=== PATIENT | female | born 1955 | race American Indian/Alaskan Native ===

== ENCOUNTER → 2024-11-28 | Outpatient (CLI) | payer OTHER, SELFPAY ==
--- NOTE | 2024-11-28 15:31 | XR_ITS ---
Examination: Thoracic spine 3 views TECHNIQUE: AP lateral coned lateral upper dorsal spine 3 views Exam date and time: November 28, 2024 1556 hours INDICATIONS: Worsening back pain beginning 5 years ago. FINDINGS: Severe osteopenia Thoracic dextroscoliosis 10 degrees Moderate diffuse thoracic degenerative disc disease Moderate thoracic spondylosis No acute fracture IMPRESSION: Moderate diffuse thoracic degenerative disc disease Incidental note advanced degenerative disc disease C5-C6, C6-C7
== END | disposition home or self-care (01) ==
PROVIDERS: PCP Nurse Practitioner Family; Referring Provider Nurse Practitioner Family; Visit Provider Nurse Practitioner Family
DX: M51.34 Other intervertebral disc degeneration, thoracic region (principal); M50.322 Other cervical disc degeneration at C5-C6 level
CPT/HCPCS: 72072

== ENCOUNTER → 2025-02-12 | Outpatient (CLI) | payer MEDICARE, MEDICAID, SELFPAY ==
--- NOTE | 2025-02-12 | XR_ITS ---
Examination: Ultrasound soft tissue neck TECHNIQUE: Grayscale sonographic images soft tissue neck Exam date and time: February 12, 2025 1303 hours INDICATIONS: Palpable lump in the neck note is beginning several months ago. FINDINGS: Right submental lymph nodes 6 x 3 x 6 mm IMPRESSION: Small right submental lymph node, recommend 6 month follow-up ultrasound soft tissue neck
--- NOTE | 2025-02-12 | XR_ITS ---
EXAMINATION: Ankle, left 3 views . Technique: Ankle AP, oblique, lateral 3 views Date and time of exam: February 12, 2025 1345 hours INDICATIONS: Ankle surgery 3 years ago. 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
--- NOTE | 2025-02-12 | XR_ITS ---
Examination: Foot, left, 3 views Technique: AP, oblique, lateral views foot, 3 views Date and time of exam: February 15, 2025 1645 hours INDICATIONS: Foot pain ankle surgery 3 years ago. FINDINGS: Moderate bunion deformity with moderate osteoarthritis first metatarsophalangeal joint Ankle fusion with moderate osteoarthritis subtalar joint Plantar posterior bony calcaneal spurs and extensive ossification in the plantar fascia IMPRESSION: Moderate bunion deformity with moderate osteoarthritis first metatarsophalangeal joint Please see the ankle report
== END | disposition home or self-care (01) ==
PROVIDERS: PCP Nurse Practitioner Family; Referring Provider Nurse Practitioner Family; Visit Provider Nurse Practitioner Family
DX: R59.0 Localized enlarged lymph nodes (principal); M24.672 Ankylosis, left ankle; M21.612 Bunion of left foot; M19.072 Primary osteoarthritis, left ankle and foot
CPT/HCPCS: 73610; 73630; 76536

== ENCOUNTER → 2025-07-23 | Outpatient (CLI) | payer MEDICARE, MEDICAID, SELFPAY ==
--- NOTE | 2025-07-23 12:30 | XR_ITS ---
Examination: Breast ultrasound complete, bilateral Date and time of exam: July 23, 2025, 1248 hours INDICATIONS: Mammogram November 29, 2023 BI-RADS 4 suspicious microcalcifications nipple level right breast Technique: Real-time grayscale ultrasonographic imaging bilateral breasts, including all 4 quadrants as well as nipple retroareolar and axillary regions. Findings: Sonographic images right breast 12:00 cyst 6 x 4 mm 8:00 nodule lobular margins 9 x 10 mm 8:00 cyst 11 x 10 mm Sonographic images left breast 2:00 cyst 6 x 4 mm No solid nodules IMPRESSION: BI-RADS Category 3: Probably benign findings Recommend 1 additional 6 month right breast sonogram follow-up to document stability of 8:00 solid nodule described above
--- NOTE | 2025-07-23 13:30 | XR_ITS ---
Examination: Diagnostic digital mammography, bilateral Computer aided detection 3-D breast Tomosynthesis, bilateral Date and time of exam: July 23, 2025, 1313 hours INDICATIONS: Right breast pain 3 months left breast pain 6 months, strong family history, sister breast cancer Technique: Nonmagnified MLO, CC views of the breasts to been obtained, reconstructed from 3-D Tomosynthesis images. R2 computer aided detection program utilized for evaluation of suspicious masses and/or abnormal calcifications. 3-D Tomosynthesis images obtained. Findings: The breasts are heterogeneously dense which may obscure small masses The breast architecture is nodular Microcalcifications in linear distribution noted in the inner lower right breast anterior depth 16 mm focal asymmetry is present 9:00 position right breast Grouped microcalcifications are also present upper outer left breast posterior depth Impression: BI-RADS Category 0: Incomplete: Need additional imaging evaluation Recommend follow-up spot tomographic views of bilateral microcalcifications as above as well as bilateral spot tomographic views 16 mm focal asymmetry 9:00 position right breast Please also see the breast sonogram report today recommending continued 6 month follow-up right breast sonography
== END | disposition home or self-care (01) ==
PROVIDERS: PCP Nurse Practitioner Family; Referring Provider Nurse Practitioner Family; Visit Provider Nurse Practitioner Family
DX: R92.0 Mammographic microcalcification found on diagnostic imaging of breast (principal); R92.8 Other abnormal and inconclusive findings on diagnostic imaging of breast; N63.13 Unspecified lump in the right breast, lower outer quadrant
CPT/HCPCS: 76641; 77062; 77066; G0279

== ENCOUNTER 2025-10-14 21:43 | Emergency (ER) | payer MEDICARE, MEDICAID, SELFPAY ==
[2025-10-14 21:58] VITALS: BP 124/74; PULSE 87; RESP 18; TEMP 36.6; O2SAT 95
--- NOTE | 2025-10-14 22:07 | PD.EDSKIN ---
ED Skin Abcess FB-RME/HPI General Chief complaint: Skin/Abscess/Foreign Body Stated complaint: INSECT BITE TO RIGHT ANKLE AREA Time Seen by Provider: 10/14/25 22:00 Arrival date/time: 10/14/25 21:43 70F with history of HTN, DM, cirrhosis, and drug/psych disorder presents to witnessed spider bite on R ankle area. Patient denies itching. It is painful. Limitations: no limitations Related Data Home Medications ?Medication ?Instructions ?Recorded ?Confirmed benztropine 0.5 mg tablet 0.5 mg PO BID 01/22/19 03/05/23 paroxetine HCl 20 mg tablet 20 mg PO QDAY 01/22/19 03/05/23 metformin 1,000 mg tablet 1,000 mg PO BID 02/03/19 03/05/23 trazodone 50 mg tablet 50 mg PO QDAY 11/01/19 03/05/23 ergocalciferol (vitamin D2) 1,250 50,000 mcg PO QWEEK 09/07/22 03/05/23 mcg (50,000 unit) capsule (Vitamin D2) insulin glargine 100 unit/mL (3 40 unit subcut DAILY 09/07/22 03/05/23 mL) subcutaneous pen (Basaglar KwikPen U-100 Insulin) olanzapine 15 mg tablet (Zyprexa) 15 mg PO HS 03/05/23 03/05/23 Previous Rx's ?Medication ?Instructions ?Recorded albuterol sulfate 90 mcg/actuation 1 inh inhalation QID PRN shortness 02/05/21 aerosol inhaler of breath or wheezing #6.7 grams blood sugar diagnostic (Blood #100 ea 02/05/21 Glucose Test strips) blood-glucose meter (Blood Glucose #1 ea 02/05/21 Monitoring kit) lancets 33 gauge (BD Ultra Fine #100 ea 02/05/21 Lancets) pantoprazole 40 mg tablet,delayed 40 mg PO BID #60 tabs 09/07/22 release (Protonix) propranolol 20 mg tablet 20 mg PO DAILY #30 tabs 09/07/22 ibuprofen 800 mg tablet 800 mg PO TID PRN pain #30 tabs 02/17/23 sulfamethoxazole 800 1 tab PO BID #14 tabs 02/17/23 mg-trimethoprim 160 mg tablet (Bactrim DS) ibuprofen 600 mg tablet 600 mg PO Q8H PRN pain #14 tabs 04/05/23 peg 3350-electrolytes 236 240 ml PO Q1H #4,000 mL 12/10/23 gram-22.74 gram-6.74 gram-5.86 gram solution (Golytely) mupirocin 2 % ointment topical kit 1 applic topical BID 1 week #1 ea 10/14/25 sulfamethoxazole 800 1 tab PO BID 5 days #10 tabs 10/14/25 mg-trimethoprim 160 mg tablet (Bactrim DS) Allergies Allergy/AdvReac Type Severity Reaction Status Date / Time haloperidol Allergy Severe Blurry Verified 10/14/25 21:45 Vision pseudoephedrine Allergy Severe Hallucinati Verified 10/14/25 21:45 ng venom-honey bee Allergy Severe Anaphylaxis Verified 10/14/25 21:45 Review of Systems Review of Systems Systems Reviewed: All systems reviewed, normal except as documented Integumentary/Breasts Skin/Breast: Reports as per HPI and Reports skin pain Past Medical History Past Medical History NEUROLOGIC: Positive Neurological Disorders; Negative Seizures CARDIAC: Positive Cardiac Disorders, Hypercholesterolemia and Hypertension; Negative Congestive Heart Failure RESPIRATORY: Positive Asthma; Negative Chronic Obstructive Pulmonary Disease (COPD), Bronchitis or Sleep Apnea GASTROINTESTINAL: Positive Gastrointestinal Disorders, Cirrhosis and Gastroesophageal Reflux Disease GENITOURINARY: Negative Genitourinary Disorders or Renal Disease REPRODUCTIVE: Negative Pelvic Inflammatory Disease MUSCULOSKELETAL: Positive Musculoskeletal Disorders and Arthritis ENDOCRINE: Positive Endocrine Disorders and Diabetes Mellitus Type 2; Negative Diabetes Mellitus Type 1 HEMATOLOGIC: Negative Sickle Cell Disease PSYCHO/SOCIAL: Positive Bipolar Disorder OTHER HISTORY: Negative Blood Transfusions, Anesthesia Reactions or Cancer Family History FAMILY HISTORY: Negative Family Cardiac Disorders Surgical History SURGICAL: Positive Abdominal Surgery and Hysterectomy; Negative Cardiac Surgery Social History SMOKING STATUS: Current every day smoker SECOND HAND EXPOSURE: Yes SUBSTANCE USE: marijuana (occasionally) ED Exam General Limitations: Present no limitations General appearance: Present alert and in no apparent distress Head Head exam: Present atraumatic Neck Neck exam: Present normal inspection, full ROM and trachea midline Chest Chest inspection: Present normal inspection and symmetric chest wall rise Extremities Exam Extremities exam: Present full ROM Expanded Lower Extremity Exam Ankle exam: Present full ROM, tenderness, erythema and other (R ankle bite with small ulceration) Neurological Exam Neurological exam: Present alert and oriented X3 Psychiatric Psychiatric exam: Present normal affect and normal mood Skin Skin exam: Present warm, dry, intact and normal color Course Quality Measures none Orders Category Date Time Status Wound Care NOW Care 10/14/25 22:01 Active Naproxen [Naprosyn] Med 10/14/25 22:01 Discontinued 500 mg PO X1 ONE Vital Signs Vital signs: Vital Signs Temperature 97.8 F 10/14/25 21:58 Pulse Rate 87 10/14/25 21:58 Respiratory Rate 18 10/14/25 21:58 Blood Pressure 124/74 10/14/25 21:58 Pulse Oximetry (%) 95 10/14/25 21:58 Oxygen Delivery Method Room Air 10/14/25 21:58 O2 at 95% on RA and WNLs Skin / Abscess / Foreign Body MDM Narrative MDM Narrative:: 70F with history of HTN, DM, cirrhosis, and drug/psych disorder presents to witnessed spider bite on R ankle area. Patient denies itching. It is painful. Physical exam reveals insect bite with small ulceration on R ankle area. Patient is afebrile, calm, and alert. Wound cleaned/bandaged. Meds and membership counselor given. Patient data External records reviewed:: [facility] previous records Clinical information provided by:: patient Social determinants that could affect healthcare access:: substance use Patient has the following chronic illnesses:: HTN, DM, cirrhosis, and drug/psych disorder How is presenting disease/condition affected by chronic disease/condition?: exacerbated by Evaluation data The following diagnostics were reviewed and interpreted by me:: other (specify) (none) Lab and/or radiology exams considered but not ordered:: not ordered Interpretation Summary: n/a Medications / Prescriptions Medications or Prescriptions considered but not ordered:: ordered Medication administrations:: Medication Administration History Discontinued Medications Naproxen (Naproxen 250 Mg Tablet) 500 mg PO X1 ONE Stop: 10/14/25 22:02 above Consultations Consultation(s) initiated? (list below): No Diagnosis Skin/Abscess Differential Diagnosis: abscess of skin or subcutaneous tissue, viral exanthem, dermatophytosis, urticaria, herpes zoster, allergic reaction to drug, cellulitis, eczema, insect bites, impetigo and contact dermatitis Most likely diagnosis given after review of the tests above:: spider bite Admission Indicated Admission indicated?: not indicated Admission Request Was there a request for admission?: No Disposition Plan Disposition Plan: Discharge Discharge Attestation Discharge Attestation: The patient and all family members were given an opportunity to ask questions and understood the discharge instructions. Discharge instructions specifically effects, indications for sooner follow up or return to the emergency department, and the expected course of current diagnosis. Patient condition: Stable Discharge Plan Plan Patient Disposition: HOME (Self Care) Discharge Disposition comment: Stable Prescriptions/Referrals Prescriptions/Med Rec: New sulfamethoxazole-trimethoprim [Bactrim DS] 800-160 mg tablet 1 tab PO BID 5 Days Qty: 10 0RF mupirocin 2 % ointment kit 1 applic topical BID 7 Days Qty: 1 0RF No Action benztropine 0.5 mg Tablet 0.5 mg PO BID paroxetine HCl 20 mg Tablet 20 mg PO QDAY metformin 1,000 mg Tablet 1,000 mg PO BID trazodone 50 mg Tablet 50 mg PO QDAY (DME) lancets [BD Ultra Fine Lancets] 33 gauge misc See Rx Instructions .ROUTE .MEDSUPPLY Qty: 100 0RF Rx Instructions: As directed- Check blood sugar three times a day (DME) blood-glucose meter [Blood Glucose Monitoring] Kit See Rx Instructions .ROUTE .MEDSUPPLY Qty: 1 0RF Rx Instructions: As directed- check blood sugar three times a day (DME) Blood Glucose Test Strip See Rx Instructions .ROUTE .MEDSUPPLY Qty: 100 0RF Rx Instructions: As directed- check blood sugar three times a day albuterol sulfate 90 mcg/actuation HFA aerosol inhaler 1 inh inhalation QID PRN (Reason: shortness of breath or wheezing) Qty: 6.7 0RF sulfamethoxazole-trimethoprim [Bactrim DS] 800-160 mg tablet 1 tab PO BID Qty: 14 0RF ibuprofen 800 mg tablet 800 mg PO TID PRN (Reason: pain) Qty: 30 0RF ibuprofen 600 mg tablet 600 mg PO Q8H PRN (Reason: pain) Qty: 14 0RF peg 3350-electrolytes [Golytely] 236-22.74-6.74 -5.86 gram recon soln 240 ml PO Q1H Qty: 4000 0RF Rx Instructions: until fecal effluent is clear ergocalciferol (vitamin D2) [Vitamin D2] 1,250 mcg (50,000 unit) capsule 50,000 mcg PO QWEEK Patient Comments: take 1 capsule by mouth every week insulin glargine [Basaglar KwikPen U-100 Insulin] 100 unit/mL (3 mL) insulin pen 40 unit SUBCUT DAILY Patient Comments: inject 40 units subcutaneously once daily pantoprazole [Protonix] 40 mg Tablet,Delayed Release (Dr/Ec) 40 mg PO BID Qty: 60 2RF Rx Instructions: take 1 tablet by mouth twice daily propranolol 20 mg Tablet 20 mg PO DAILY Qty: 30 6RF Rx Instructions: take 1 tablet by mouth daily olanzapine [Zyprexa] 15 mg tablet 15 mg PO HS Problem List Clinical Impression: Spider bite Patient/Caregiver Discharge Instructions Education Materials: ED Spider Bite, Non-Poisonous Additional Instructions: Please follow-up with PCP within 24-48 hours and return immediately if symptoms worsen. Keep wound covered with ABX ointment. Print Language: Malawian Stand Alone Forms: Patient Portal Info Letter MACARENA/SEMIAUTOMATIC TAPER OPERATOR Supervising Physician MACARENA/GINGER Supervising Physician: Dr. Sinhg
[2025-10-14] MEDS: NAPROXEN 250 MG TABLET 500 MG PO (22:19)
[2025-10-14 23:17] VITALS: RESP 17
== END 2025-10-14 23:17 | disposition home or self-care (01) ==
LOC: SERX 22:37
PROVIDERS: Emergency Provider Emergency Medicine; PCP Nurse Practitioner Family
DX: T63.301A Toxic effect of unspecified spider venom, accidental (unintentional), initial encounter (principal)
CPT/HCPCS: 99282; A9270

== ENCOUNTER 2025-10-20 14:46 | Emergency (ER) | payer MEDICARE, MEDICAID, SELFPAY ==
[2025-10-20 15:04] VITALS: BP 125/80; PULSE 108; RESP 18; TEMP 36.8; O2SAT 95; BMI 27.6
--- NOTE | 2025-10-20 15:24 | PD.EDADULT ---
ED General RME/HPI General Chief complaint: General Adult/Misc Complain Stated complaint: TEST FOR PESTICIDES, VOCs, RADIATION, ETC. 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 Mode of arrival: ambulatory Limitations: no limitations Related Data Home Medications ?Medication ?Instructions ?Recorded ?Confirmed benztropine 0.5 mg tablet 0.5 mg PO BID 01/22/19 03/05/23 paroxetine HCl 20 mg tablet 20 mg PO QDAY 01/22/19 03/05/23 metformin 1,000 mg tablet 1,000 mg PO BID 02/03/19 03/05/23 trazodone 50 mg tablet 50 mg PO QDAY 11/01/19 03/05/23 ergocalciferol (vitamin D2) 1,250 50,000 mcg PO QWEEK 09/07/22 03/05/23 mcg (50,000 unit) capsule (Vitamin D2) insulin glargine 100 unit/mL (3 40 unit subcut DAILY 09/07/22 03/05/23 mL) subcutaneous pen (Basaglar KwikPen U-100 Insulin) olanzapine 15 mg tablet (Zyprexa) 15 mg PO HS 03/05/23 03/05/23 Previous Rx's ?Medication ?Instructions ?Recorded albuterol sulfate 90 mcg/actuation 1 inh inhalation QID PRN shortness 02/05/21 aerosol inhaler of breath or wheezing #6.7 grams blood sugar diagnostic (Blood #100 ea 02/05/21 Glucose Test strips) blood-glucose meter (Blood Glucose #1 ea 02/05/21 Monitoring kit) lancets 33 gauge (BD Ultra Fine #100 ea 02/05/21 Lancets) pantoprazole 40 mg tablet,delayed 40 mg PO BID #60 tabs 09/07/22 release (Protonix) propranolol 20 mg tablet 20 mg PO DAILY #30 tabs 09/07/22 ibuprofen 800 mg tablet 800 mg PO TID PRN pain #30 tabs 02/17/23 sulfamethoxazole 800 1 tab PO BID #14 tabs 02/17/23 mg-trimethoprim 160 mg tablet (Bactrim DS) ibuprofen 600 mg tablet 600 mg PO Q8H PRN pain #14 tabs 04/05/23 peg 3350-electrolytes 236 240 ml PO Q1H #4,000 mL 12/10/23 gram-22.74 gram-6.74 gram-5.86 gram solution (Golytely) mupirocin 2 % ointment topical kit 1 applic topical BID 1 week #1 ea 10/14/25 Allergies Allergy/AdvReac Type Severity Reaction Status Date / Time haloperidol Allergy Severe Blurry Verified 10/20/25 14:49 Vision pseudoephedrine Allergy Severe Hallucinati Verified 10/20/25 14:49 ng venom-honey bee Allergy Severe Anaphylaxis Verified 10/20/25 14:49 Review of Systems Review of Systems Systems Reviewed: All systems reviewed, normal except as documented Constitutional Constitutional: Reports system reviewed and no additional complaints, except as documented, Denies fatigue, Denies fever(s), Denies headache(s) and Denies weakness Eyes Eyes: Reports system reviewed and no additional complaints, except as documented, Denies blurry vision and Denies change in vision ENT Ears, Nose, Mouth, and Throat: Reports system reviewed and no additional complaints, except as documented, Denies otalgia, Denies headache(s), Denies nasal congestion, Denies throat swelling and Denies vertigo Cardiovascular Cardiovascular: Reports system reviewed and no additional complaints, except as documented, Denies chest pain, Denies dyspnea and Denies dyspnea on exertion Respiratory Respiratory: Reports system reviewed and no additional complaints, except as documented, Denies chest congestion, Denies cough, Denies dyspnea, Denies dyspnea on exertion and Denies wheezing Gastrointestinal Gastrointestinal: Reports system reviewed and no additional complaints, except as documented, Denies abdominal pain, Denies cramping, Denies nausea and Denies vomiting Genitourinary Genitourinary: Reports system reviewed and no additional complaints, except as documented Musculoskeletal Musculoskeletal: Reports system reviewed and no additional complaints, except as documented and Denies back pain Integumentary/Breasts Skin/Breast: Reports system reviewed and no additional complaints, except as documented and Denies wounds Neurologic Neurologic: Reports system reviewed and no additional complaints, except as documented, Denies confusion, Denies headache(s), Denies lack of coordination, Denies vertigo and Denies weakness Psychiatric Psychiatric: Reports system reviewed and no additional complaints, except as documented, Denies anxiety, Denies confusion, Denies depression, Denies paranoia, Denies suicidal ideation and Denies tactile hallucinations Endocrine Endocrine: Reports system reviewed and no additional complaints, except as documented and Denies fatigue Hematologic/Lymphatic Hematologic/Lymphatic: Reports system reviewed and no additional complaints, except as documented and Denies lymphadenopathy Allergic/Immunologic Allergic/Immunologic: Reports system reviewed and no additional complaints, except as documented, Denies throat swelling, Denies urticaria and Denies wheezing Past Medical History Past Medical History NEUROLOGIC: Positive Neurological Disorders; Negative Seizures CARDIAC: Positive Cardiac Disorders, Hypercholesterolemia and Hypertension; Negative Congestive Heart Failure RESPIRATORY: Positive Asthma; Negative Chronic Obstructive Pulmonary Disease (COPD), Bronchitis or Sleep Apnea GASTROINTESTINAL: Positive Gastrointestinal Disorders, Cirrhosis and Gastroesophageal Reflux Disease GENITOURINARY: Negative Genitourinary Disorders or Renal Disease REPRODUCTIVE: Negative Pelvic Inflammatory Disease MUSCULOSKELETAL: Positive Musculoskeletal Disorders and Arthritis ENDOCRINE: Positive Endocrine Disorders and Diabetes Mellitus Type 2; Negative Diabetes Mellitus Type 1 HEMATOLOGIC: Negative Sickle Cell Disease PSYCHO/SOCIAL: Positive Bipolar Disorder OTHER HISTORY: Negative Blood Transfusions, Anesthesia Reactions or Cancer Family History FAMILY HISTORY: Negative Family Cardiac Disorders Surgical History SURGICAL: Positive Abdominal Surgery and Hysterectomy; Negative Cardiac Surgery Social History SMOKING STATUS: Current every day smoker SECOND HAND EXPOSURE: Yes SUBSTANCE USE: marijuana (occasionally) ED Exam General Limitations: Present no limitations General appearance: Present alert and in no apparent distress Head Head exam: Present atraumatic Eye Eye exam: Present normal appearance, PERRL and EOMI ENT ENT exam: Present normal exam, normal oropharynx and mucous membranes moist Neck Neck exam: Present normal inspection, full ROM and trachea midline Chest Chest inspection: Present normal inspection and symmetric chest wall rise Respiratory Respiratory exam: Present normal lung sounds bilaterally; Absent respiratory distress, wheezes, stridor, accessory muscle use or prolonged expiratory phase Cardiovascular Cardiovascular exam: Present regular rate, normal rhythm, normal heart sounds, +S1 and +S2; Absent bradycardia, tachycardia, irregular rhythm, systolic murmur, diastolic murmur, rubs, gallop, clicks or JVD Abdominal Exam Abdominal exam: Present soft and normal bowel sounds; Absent distention, tenderness, guarding, rebound or rigidity Extremities Exam Extremities exam: Present normal inspection and full ROM Back Exam Back exam: Present normal inspection and full ROM Neurological Exam Neurological exam: Present alert, oriented X3 and CN II-XII intact Psychiatric Psychiatric exam: Present normal affect and normal mood Skin Skin exam: Present warm, dry, intact and normal color Course Quality Measures none Vital Signs Vital signs: Vital Signs Temperature 98.3 F 10/20/25 15:04 Pulse Rate 108 H 10/20/25 15:04 Respiratory Rate 18 10/20/25 15:04 Blood Pressure 125/80 10/20/25 15:04 Pulse Oximetry (%) 95 10/20/25 15:04 Oxygen Delivery Method Room Air 10/20/25 15:04 Discharge Plan Plan Patient Disposition: HOME (Self Care) Discharge Disposition comment: Stable Prescriptions/Referrals Prescriptions/Med Rec: No Action benztropine 0.5 mg Tablet 0.5 mg PO BID paroxetine HCl 20 mg Tablet 20 mg PO QDAY metformin 1,000 mg Tablet 1,000 mg PO BID trazodone 50 mg Tablet 50 mg PO QDAY (DME) lancets [BD Ultra Fine Lancets] 33 gauge misc See Rx Instructions .ROUTE .MEDSUPPLY Qty: 100 0RF Rx Instructions: As directed- Check blood sugar three times a day (DME) blood-glucose meter [Blood Glucose Monitoring] Kit See Rx Instructions .ROUTE .MEDSUPPLY Qty: 1 0RF Rx Instructions: As directed- check blood sugar three times a day (DME) Blood Glucose Test Strip See Rx Instructions .ROUTE .MEDSUPPLY Qty: 100 0RF Rx Instructions: As directed- check blood sugar three times a day albuterol sulfate 90 mcg/actuation HFA aerosol inhaler 1 inh inhalation QID PRN (Reason: shortness of breath or wheezing) Qty: 6.7 0RF sulfamethoxazole-trimethoprim [Bactrim DS] 800-160 mg tablet 1 tab PO BID Qty: 14 0RF ibuprofen 800 mg tablet 800 mg PO TID PRN (Reason: pain) Qty: 30 0RF ibuprofen 600 mg tablet 600 mg PO Q8H PRN (Reason: pain) Qty: 14 0RF peg 3350-electrolytes [Golytely] 236-22.74-6.74 -5.86 gram recon soln 240 ml PO Q1H Qty: 4000 0RF Rx Instructions: until fecal effluent is clear ergocalciferol (vitamin D2) [Vitamin D2] 1,250 mcg (50,000 unit) capsule 50,000 mcg PO QWEEK Patient Comments: take 1 capsule by mouth every week insulin glargine [Basaglar KwikPen U-100 Insulin] 100 unit/mL (3 mL) insulin pen 40 unit SUBCUT DAILY Patient Comments: inject 40 units subcutaneously once daily pantoprazole [Protonix] 40 mg Tablet,Delayed Release (Dr/Ec) 40 mg PO BID Qty: 60 2RF Rx Instructions: take 1 tablet by mouth twice daily propranolol 20 mg Tablet 20 mg PO DAILY Qty: 30 6RF Rx Instructions: take 1 tablet by mouth daily olanzapine [Zyprexa] 15 mg tablet 15 mg PO HS mupirocin 2 % ointment kit 1 applic topical BID 7 Days Qty: 1 0RF Problem List Clinical Impression: Periodic health assessment, general screening, adult Patient/Caregiver Discharge Instructions Education Materials: ED Medical Screening Exam, Nonemergent Additional Instructions: Please follow-up with your primary care provider in the next 24 to 48 hours Your physical examination today was within normal limits Please follow-up with your primary care provider for outpatient labs For any evidence of worsening signs or symptoms return to the emergency room immediately Print Language: Citizen Of [place] Stand Alone Forms: [employer] Info., Work/School Release, Patient Portal Info Letter PA/MEDICAL TRANSCRIPTION SUPERVISOR Supervising Physician PA/MEDICAL TRANSCRIPTION SUPERVISOR Supervising Physician: Dr. 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 Patient is hemodynamically stable and in no apparent distress. She is afebrile not tachycardic not tachypneic and her O2 saturation is 95% on room air. Patient at this time denies any chest pain stomach pain shortness of breath. Patient states she believes over the last 5 [place]. Patient states she is building a case and is going to be calling the [employer] and would like to get tested and analyzed for any signs of poisoning. The patient is asymptomatic and nontoxic-appearing. I do not know her medical history or if the patient has any history of schizophrenia or drug use. My physical examination was within normal limits and at this time there does not appear to be any medical emergency. The patient is a GCS of 15 she is alert and oriented x 3 pupils are PERRLA EOMs are intact. The patient presents with another friend that lives with her who is also here for the same reason. The patient was educated that she will follow-up with her primary care provider so she can receive all these labs in an outpatient setting. Patient agreed and was discharged. Patient was given strict return precautions for any evidence of worsening signs or symptoms Clinical Information Provided by: none Medical Records reviewed None Meds/Rx considered, not ordered None Labs/Rad/Tests considered, not ordered None Chronic Illness/Social Conditions which may negatively complicate care or outcome(s)-explain: None or not applicable EKG EKG not done Labs Labs: none Imaging Imaging interpretation: none Medication Administration(s) none Diagnosis Differential Diagnosis ED Complaint MDM: Periodic General Adult screening
--- NOTE | 2025-10-20 18:46 | PC.NURSE ---
no answer in lobby. pt was seen leaving before dc papers were given
== END 2025-10-20 18:48 | disposition home or self-care (01) ==
PROVIDERS: Emergency Provider Family Medicine
DX: Z00.00 Encounter for general adult medical examination without abnormal findings (principal)
CPT/HCPCS: 99281